=== PATIENT | male | born 1975 | race Caucasian/White ===

== ENCOUNTER 2020-04-12 20:37 | Emergency (ER) | payer SELFPAY ==
[2020-04-12 21:00] VITALS: BP 140/98; PULSE 108; RESP 20; TEMP 37.7; O2SAT 97; BMI 35.5
[2020-04-12 21:16] LABS: UTC Influenza A Antigen Negative (Negative)
[2020-04-12 21:17] LABS: UTC Influenza B Antigen Negative (Negative)
--- NOTE | 2020-04-12 21:20 | HMH.EDUTC ---
[facility] [place] Clinical Impression: Upper respiratory infection, viral Disposition: Home, Self-Care Condition on Discharge: Good Instructions: Common Cold Additional Instructions: No sign of a bacterial infection. Likely viral. Viruses can take 7-14 days to run their course. Nasal saline and bulb syringe or nose Ashley to remove nasal drainage to help with nasal congestion. Hard to eat, drink, sleep with nasal congestion so important to keep this cleaned out. Monitor temp. Tylenol or Motrin as needed for pain or fever Encourage fluids, water, Gatorade, Powerade, Pedialyte if infant/toddler/child Warm salt water gargles Warm fluids Sore throat lozenges Sleep elevated Humidifier/vaporizer Your covid swab was sent. These results are typically sent to the primary care. Be sure you follow-up in 2-3 days if no improvement so we can review the results and treat if necessary Follow-up immediately for new or worsening symptoms or no noticeable improvement over the next 48-72 hours. isolate until test results are known Referrals: PCP,No [Primary Care Provider] - Time of Disposition: 21:23 Medical Decision Making - Elio Inquiry Pt receiving controlled substance: No Vital Signs: 04/12/20 21:00 Temperature 100 F H Temperature Source Oral Pulse Rate [Right Brachial] 108 H Respiratory Rate 20 Blood Pressure [Right Arm] 140/98 H Blood Pressure Mean [Right Arm] 112 Blood Pressure Source [Right Arm] Automatic Cuff Blood Pressure Position [Right Arm] Sitting 02 Sat by Pulse Oximetry 97 Oxygen Delivery Method Room Air - Lab Data Lab Results 04/12/20 20:54: Influenza Type A Ag Negative, Influenza Type B Ag Negative Orders (Tests/Meds): ORDERS Category Date Time Status Covid-19 Nasal PCR Sendout Jose Routine Lab 04/12/20 20:54 Ordered [facility] [place] - General Chief complaint: [facility] Stated complaint: headache;body ache;cough Time Seen by Provider: 04/12/20 21:21 Mode of Arrival: Ambulatory Source of Information: Patient Limitations: No Limitations Description of Symptoms (Recalled from Triage Doc. by RN): PATIENT C/O BODY ACHES, COUGH, HEADACHE, DECREASED APPETITE AND VOMITING (ONCE) SINCE MONDAY HEENT Symptoms (Recalled from RN notes): No Resp Symptoms (Recalled from RN notes): No Skin Symptoms (Recalled from RN notes): No MS Symptoms (Recalled from RN notes): No Functional Status (Recalled from RN notes): WNL - History of Present Illness Provider Complaint: 44 yr old male presnts for sore throat, body aches, chills, runny nose and low grade fever since - Related Data Allergies Allergy/AdvReac Type Severity Reaction Status Date / Time No Known Allergies Allergy Verified 04/12/20 21:15 - Worker's Comp Is this a Worker's Comp case?: No H History - Hepatitis A Screen Drug use history?: No High risk sexual behaviors?: No History of sexually transmitted infection?: No Currently employed?: No Childcare worker?: No Do you have indoor plumbing?: Yes Do you have electricity?: Yes Attestation statement:: This patient has been screened for Hepatitis A risk factors. I have reviewed the patient's past medical history: Yes - Social History Alcohol Intake: never Occupational Status: other ROS Obtained: Yes Systems reviewed as appropriate & no additional complaints - Constitutional Constitutional: Reports system reviewed and no additional complaints, except as docu, Reports body ache, Reports chills, Reports fatigue, Reports fever(s), Reports poor appetite - Eyes Eyes: Reports system reviewed and no additional complaints, except as docu, Denies blurry vision - ENT Ears, Nose, Mouth, and Throat: Reports system reviewed and no additional complaints, except as docu, Denies lip swelling - Cardiovascular Cardiovascular: Reports system reviewed and no additional complaints, except as docu - Respiratory Respiratory: Yes system reviewed and no additional
[2020-04-12 21:24] VITALS: BP 140/98; PULSE 108; RESP 20; TEMP 37.7; O2SAT 97
[2020-04-14 12:45] LABS: Covid-19 Nasal PCR Sendout Lex Positive
--- NOTE | 2020-04-14 12:56 | PC.NURSE ---
Patient notified of positive covid results. Educated on quarantine.
== END 2020-04-12 21:25 | disposition home or self-care (01) ==
PROVIDERS: Emergency Provider Nurse Practitioner Family
DX: U07.1 COVID-19 (principal)
CPT/HCPCS: 87804; 99201; U0004

== ENCOUNTER 2024-09-15 12:31 | Emergency (ER) | payer SELFPAY ==
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
[2024-09-15 12:36] VITALS: BP 161/93
[2024-09-15 12:40] VITALS: PULSE 69; O2SAT 99
[2024-09-15 12:42] VITALS: BP 161/93; PULSE 77; RESP 16; TEMP 36.9; O2SAT 97; BMI 34.9
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
--- NOTE | 2024-09-15 12:53 | PC.NURSE ---
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
--- NOTE | 2024-09-15 12:58 | PC.NURSE ---
pt to scan via wheelchair
[2024-09-15 13:04] VITALS: BP 133/70; PULSE 60; O2SAT 99
[2024-09-15] MEDS: ACETAMINOPHEN 500MG TAB 1000 MG PO (13:05)
[2024-09-15] MEDS: METHOCARBAMOL 500MG TABLET 500 MG PO (13:05)
[2024-09-15] MEDS: IBUPROFEN 400 MG TABLET 800 MG PO (13:05)
[2024-09-15] MEDS: LIDOCAINE 5% TRANSDERMAL PATCH 1 EACH TD (13:05)
--- NOTE | 2024-09-15 13:19 | PC.NURSE ---
call made to [facility] for [employer] and disc made for consult with [facility]
--- NOTE | 2024-09-15 13:22 | PC.NURSE ---
Called [facility], stated they are dealing with multiple other calls and they will call back
--- NOTE | 2024-09-15 13:26 | PC.NURSE ---
Shahla SIMMONS is currently speaking with [facility]
--- NOTE | 2024-09-15 13:28 | PC.NURSE ---
PA on phone with [facility]
[2024-09-15 13:30] VITALS: BP 114/69; PULSE 60; RESP 14; O2SAT 98
--- NOTE | 2024-09-15 13:43 | PC.NURSE ---
[facility] called and is speaking with IRIS Lazo now.
[2024-09-15 13:58] VITALS: BP 114/69; PULSE 60; RESP 14; TEMP 36.9; O2SAT 98
[2024-09-15 14:09] LABS: HIV Combo NEGATIVE (Negative)
[2024-09-15 14:17] LABS: Hepatitis C Ab Qual. W/ RFX NEGATIVE (Negative)
== END 2024-09-15 13:59 | disposition home or self-care (01) ==
PROVIDERS: Physician Assistant; Emergency Provider Emergency Medicine
DX: S02.92XA Unspecified fracture of facial bones, initial encounter for closed fracture (principal); V86.59XA Driver of other special all-terrain or other off-road motor vehicle injured in nontraffic accident, initial encounter
CPT/HCPCS: 70450; 70486; 72125; 86803; 87389; 99285